=== PATIENT | female | born 1985 | race Caucasian/White ===

== ENCOUNTER 2023-12-24 12:54 | Emergency (ER) | payer BC, SELFPAY ==
[2023-12-24 12:56] VITALS: BP 176/108
[2023-12-24 13:41] VITALS: BMI 32.0
[2023-12-24 13:46] VITALS: BP 154/94
[2023-12-24 13:55] LABS: % Basophils 0.8 % (0-2); % Eosinophils 1.5 % (0-6); % Immature Granulocytes 0.3 % (0-0.5); % Lymphocytes 21.5 % (20.5-51.1); % Monocytes 6.1 % (1.7-9.3); % Neutrophils 69.8 % (42.2-75.2); Absolute Basophils 0.1 10^3/uL (0-0.2); Absolute Eosinophils 0.1 10^3/uL (0-0.7); Absolute Lymphocytes 1.9 10^3/uL (1.2-3.4); Absolute Monocytes 0.5 10^3/uL (0.1-0.6); Absolute Neutrophils 6.1 10^3/uL (1.4-6.5); Hematocrit 39.7 % (37.0-47.0); Hemoglobin 13.8 g/dL (12.0-16.0); Mean Corp Hgb Conc. 34.8 g/dL (33.0-37.0); Mean Corpuscular Hgb 29.4 pg (27.0-31.0); Mean Corpuscular Volume 84.6 fL (81.0-99.0); Mean Platelet Volume 9.2 fL (7.4-10.4); Nucleated Red Blood Cells % 0 %; Platelet Count 326 10^3/uL (130-400); Red Blood Cell Count 4.69 10^6/uL (4.20-5.40); Red Cell Dist. Width 12.1 % (11.5-14.5); White Blood Cell Count 8.8 10^3/uL (4.8-10.8)
[2023-12-24 14:00] VITALS: BP 126/90
[2023-12-24 14:15] LABS: ALT (SGPT) 16 U/L (0-35); AST (SGOT) 21 U/L (14-36); Albumin 4.4 g/dl (3.5-5.0); Alkaline Phosphatase 71 U/L (38-126); Blood Urea Nitrogen 8 mg/dl (7-17); Calcium 9.3 mg/dl (8.4-10.2); Carbon Dioxide 23 mmol/L (22-30); Chloride 106 mmol/L (98-107); Estimated Creatinine Clearance > 125 ml/min; Glucose 102 mg/dl (70-99); Potassium 3.8 mmol/L (3.5-5.1); Sodium 135 mmol/L (135-145); Total Bilirubin 0.5 mg/dl (0.2-1.3); Total Protein 7.5 g/dl (6.3-8.2); eGFR > 60.00
[2023-12-24 15:00] VITALS: BP 134/83
[2023-12-24 15:08] LABS: HCG, Serum Qualitative Screen Negative
--- NOTE | 2023-12-24 15:20 | ED.GENMED ---
History of Present Illness
General
Chief Complaint: Dizziness
Source: patient
Exam Limitations: none
Time Seen by Provider: 12/24/23 15:08
Nursing documentation reviewed up to this point in time: agreed with
Travel History
Have you had any contact with someone who has COVID-19?: No
Do you have any symptoms of coronavirus? Fever > 100 degrees, chills, cough, shortness of breath, sore throat, loss of taste or smell, muscle aches, or headache?: No
History of Present Illness
History of Present Illness:
Patient to [facility] complaint of dizziness. Symptoms started on December 08 and continue. Reports mild daily headache at onset x 1 week. VIRAMONTES relieved with ibuprofen. Today felt flushed and noticed that her BP is elevating. SShe has a history of HTN
and was on meds at one time. Meds discontinue after she lost weight and BP normalized. States she has put weight back on. Denies fever/chills, n/v/d. No SOB, CP/pressure. Eating and drinking normally. Brought self to ED for eval. States she
has been seeing ENT for throat issues. She discussed her dizziness with him and was told it may be Mal debarquement syndrome. She is requesting CT today, family hx brain CA.
Past History
Past History
ED Past Medical History: Hypothyroidism and Other (ivf)
ED Past Surgical History: Appendectomy, Tonsilectomy and Other ([place] teeth, cystectomy, myomectomy)
Social History
Tobacco: Non-smoker
Personal:
Living: with family
Employment: Employed
Review of Systems
Review of Systems
Allergies reviewed?: Yes
All Other Systems: ROS reviewed and negative except as documented in HPI and ROS
Constitutional: Reports no symptoms
EENT: Reports no symptoms
Respiratory: Reports no symptoms
Cardiac: Reports other (Reports BP elevation)
ABD/GI: Reports no symptoms
: Reports no symptoms
Musculoskeletal: Reports no symptoms
Skin: Reports no symptoms
Neurological: Reports dizzy and headache
Psychiatric: Reports no symptoms
Phy Exam
General Physical Exam
General Presentation: well appearing and no apparent distress
General age: appears stated age
General Skin: warm and dry
General Habitus: normal
General Mental: alert
ENT Exam
ENT Exam: EOMI and TM's normal
Eye Exam
Eye Exam: PERRL, EOMI, conjunctiva normal, disc sharp and globe normal
Neurological Exam
Neurological Exam: alert, oriented x3, CN II-XII intact, no motor deficits, no sensory deficits, speech normal and normal gait
Mental
Mental Status: oriented to person, oriented to place, oriented to time and usual mental status
Cranial
Cranial Nerves: normal, intact gag reflex and no facial asymetry
EOM (CN3/4/6): intact
Motor
Seizure Activity: none
Gait: normal
Tremors: none
Right upper extremity: 4
Right lower extremity: 4
Left upper extremity: 4
Left lower extremity: 4
Bilateral upper extremities: 4
Bilateral lower extremities: 4
Sensory
Sensory Exam: intact
Cerebellar
Cerebellar Function: normal finger to nose, normal heel to shaikh and normal Romberg test
Musculoskeletal Exam
Musculoskeletal Exam: full ROM and neuro vasc intact
Skin Exam
Skin Exam: normal color, warm/dry and no rash
Psychiatric Exam
Psychiatric Exam: normal mood/affect
Course
Orders/Labs/Results
Orders:
Orders
12/24/23 13:03
ECG [Electrocardiogram (*1)] Urgent
Reason for Study: Palpitations
EKG- Treatment ONCE
12/24/23 13:28
Test Result ONCE
12/24/23 13:44
Complete Blood Count/With Diff Urgent
Comprehensive Metabolic Panel Urgent
HCG, Serum Qualitative Screen Urgent
12/24/23 15:20
CT Head W/o Iv Contrast Urgent
Comment:
Reason For Exam: pain dizziness
12/24/23 15:37
Urinalysis Reflex To Culture Urgent
Date Specimen was Collected: 12/24/23
Time Specimen was Collected: 15:35
Abnormal Lab Results
12/24/23 12/24/23
13:44 15:37
Glucose 102 H mg/dl
(70-99)
Urine Ketones 1+ A
(Negative)
12/24/23 13:44
12/24/23 13:44
Vital Signs
Initial and Last Documented VS:
Initial Vital Signs
Pulse Resp BP Pulse Ox
99 18 176/108 100
12/24/23 12:56 12/24/23 12:56 12/24/23 12:56 12/24/23 12:56
Last Documented Vital Signs
Temp Pulse Resp BP Pulse Ox
98.6 F 94 25 129/97 99
12/24/23 13:46 12/24/23 16:25 12/24/23 16:25 12/24/23 17:27 12/24/23 16:15
*Radiology
Radiology exam reviewed: radiology read reviewed
*Pulse Oximetry
Patient hypoxic: no
*Critical Care Note
Total Time (30-74mins, 75-104mins- exclusive of procedures): Not Applicable
ED Attending Note
-
Portions of this chart may have been created with voice recognition software.� Occasional wrong word or��sound alike� substitutions may have occurred due to the inherent limitations of voice recognition software.
Discharge Plan
Departure
Patient Disposition: Home (Routine Discharge)
Date of Disposition: 12/24/23
Time of Disposition: 17:09
Patient with high blood pressure during this ER visit?: No
Condition: Good
Covid-19: Not Applicable
Discharge Problem:
Dizziness
Instructions: Dizziness
Prescriptions:
New
meclizine 25 mg tablet
25 mg PO TID PRN (Reason: dizziness) Qty: 21 0RF
Referrals:
NONE,* [Family Provider] -
Activity Restrictions/Additional Instructions:
Return to the emergency department immediately for any changes in/worsening of your symptoms.
Interventions
Interventions:
*Risk Screen - Suicide Last Done: 12/24/23 13:41
*General Assessment Last Done: 12/24/23 13:41
*Neglect/Abuse Screening Last Done: 12/24/23 13:41
ED- Fall Risk Assessment Last Done: 12/24/23 13:41
*ED COVID-19 Vaccine History Last Done: 12/24/23 12:56
*Nursing Disposition Last Done: 12/24/23 17:32
ED- Neurological Assessment Last Done: 12/24/23 13:41
ED- Cardiac Assessment Last Done: 12/24/23 13:44
ED Swallowing Screen Last Done: 12/24/23 13:41
Discharge Date and Time
Discharge Date/Time: 12/24/23 17:35
Print Language: CITIZEN OF [place]
[2023-12-24 15:51] LABS: Urine Albumin Negative (Neg - Trace); Urine Bilirubin Negative (Negative); Urine Character Clear (Clear); Urine Color Yellow; Urine Glucose Negative (Negative); Urine Ketone 1+ (Negative); Urine Leukocyte Negative (Negative); Urine Nitrite Negative (Negative); Urine Occult Blood Negative (Negative); Urine Urobilinogen Negative (Neg - 1+)
[2023-12-24 16:00] VITALS: BP 121/74
[2023-12-24 17:27] VITALS: BP 129/97
== END 2023-12-24 17:35 | disposition home or self-care (01) ==
LOC: EMR 12:54
PROVIDERS: Emergency Medicine; Nurse Practitioner; EMERGENCY PHYSICIAN Emergency Medicine
DX: R42 Dizziness and giddiness (principal); E03.9 Hypothyroidism, unspecified; I10 Essential (primary) hypertension; Z80.8 Family history of malignant neoplasm of other organs or systems; Z90.49 Acquired absence of other specified parts of digestive tract
CPT/HCPCS: 99284; 70450; 80053; 81003; 84703; 85025; 93005

== ENCOUNTER → 2024-01-23 17:42 | Outpatient (REF) | payer BC, SELFPAY | LOC: RAD 17:42 | PROVIDERS: ATTENDING PHYSICIAN Family Medicine | DX: M54.2 Cervicalgia (principal); M51.37 Other intervertebral disc degeneration, lumbosacral region | CPT/HCPCS: 72040; 72110 ==

== ENCOUNTER → 2024-05-20 16:18 | Outpatient (REF) | payer BC, SELFPAY | LOC: DHSLP 16:18 | PROVIDERS: ATTENDING PHYSICIAN Internal Medicine Critical Care Medicine; FAMILY PHYSICIAN Otolaryngology | DX: G47.19 Other hypersomnia (principal); R06.83 Snoring | CPT/HCPCS: 95800 ==

== ENCOUNTER → 2024-09-29 12:47 | Outpatient (REF) | payer BC, SELFPAY | LOC: RCS 12:47 | PROVIDERS: ATTENDING PHYSICIAN Registered Nurse | DX: I10 Essential (primary) hypertension (principal); R42 Dizziness and giddiness; R51.9 Headache, unspecified | CPT/HCPCS: 93225; 93226 ==

== ENCOUNTER → 2024-10-07 11:42 | Outpatient (REF) | payer BC, SELFPAY | LOC: HWWDC 11:42 | PROVIDERS: ATTENDING PHYSICIAN Registered Nurse | DX: Z12.31 Encounter for screening mammogram for malignant neoplasm of breast (principal) | CPT/HCPCS: 77063; 77067 ==

== ENCOUNTER → 2024-10-08 09:56 | Outpatient (REF) | payer BC, SELFPAY | LOC: HWRCS 09:56 | PROVIDERS: ATTENDING PHYSICIAN Registered Nurse | DX: I10 Essential (primary) hypertension (principal) | CPT/HCPCS: 93306 ==